=== PATIENT | female | born 1965 | race Caucasian/White ===

== ENCOUNTER → 2017-11-14 | Outpatient (CLI) | payer OTHER | LOC: FIMAGING 08:18 | PROVIDERS: ATTEND Family Medicine | DX: Z12.31 Encounter for screening mammogram for malignant neoplasm of breast (principal) ==

== ENCOUNTER 2018-03-26 12:07 | Observation (INO) | payer OTHER ==
[2018-03-26] MEDS ORDERED: LR 1,000 ML IV ONE (12:28)
[2018-03-26] MEDS ORDERED: ceFAZolin 2 GM/DEXTROSE 100 ML IV ONE (12:44)
[2018-03-26] MEDS ORDERED: VASOPRESSIN 20 UNIT/ML VIAL ONE (13:06)
[2018-03-26] MEDS ORDERED: MIDAZOLAM 2 MG/2 ML VIAL IVP ONE (13:50)
[2018-03-26] MEDS ORDERED: SCOPOLAMINE HYDROBROMIDE 1 MG/3 DAYS PATCH TD SCH (14:00)
--- NOTE | 2018-03-26 14:02 | PDANEPAE ---
ANE History of Present Illness Vaginal hysterectomy laparoscopic assisted. ANE Past Medical History - Cardiovascular History Hx Hypertension: No Hx Arrhythmias: No Hx Chest Pain: No Hx Coronary Artery / Peripheral Vascular Disease: No Hx CHF / Valvular Disease: No Hx Palpitations: No - Pulmonary History Hx COPD: No Hx Asthma/Reactive Airway Disease: Yes Hx Recent Upper Respiratory Infection: No Hx Oxygen in Use at Home: No Hx Sleep Apnea: No Sleep Apnea Screening Result - Last Documented: Negative Pulmonary History Comment: CHILDHOOD RESOLVED BY AGE 4. BRONCHITIS 02/10 THRU 02/23. WITH POST COUGH TIL 02/27/18 - Neurologic History Hx Cerebrovascular Accident: No Hx Seizures: No Hx Dementia: No - Endocrine History Hx Diabetes: No Hypothyroid: No Hyperthyroid: No Obesity: mild - Renal History Hx Renal Disorders: No Renal History Comment: SLIGHT STRESS INCONT - Liver History Hx Hepatic Disorders: No - Neurological & Psychiatric Hx Hx Neurological and Psychiatric Disorders: No - Congenital Disorder History Hx Congenital Disorders: No - GI History Hx Gastrointestinal Disorders: Yes Gastrointestinal History Comment: GASTRIC SLEEVE. HX OF DUDONEAL ULCER - Other Health History Other Health History: ANEMIA. DYSFUNCTIONAL UTERINE BLEEDING - Chronic Pain History Chronic Pain: No - Surgical History Prior Surgeries: LAP BAND 2007. LAP BAND REVISION HERNIATED 2008. LAP BAND REMVL 2013. GASTRIC SLEEVE 2014 ANE Review of Systems Review of systems is: negative Review of Systems: - Exercise capacity METS (RN): 4 METS ANE Patient History - Allergies Allergies/Adverse Reactions: mushroom Allergy (Verified 03/23/18 12:46) - Home Medications Home Medications: Ferrous Sulfate [Ferrous Sulf 325 MG (*)] 325 mg PO DAILY 03/17/18 [Last Taken Unknown] Herbals/Supplements -Info Only 1 ea PO DAILY 03/17/18 [Last Taken Unknown] Vitamin B Complex [Vitamin B Complex (OTC)] 1 each PO DAILY 03/17/18 [Last Taken Unknown] - NPO status NPO Since - Liquids (Date): 03/25/18 NPO Since - Liquids (Time): 18:00 NPO Since - Solids (Date): 03/25/18 NPO Since - Solids (Time): 18:00 - Anes Hx Anes Hx: no prior problems - Smoking Hx Smoking Status: Never smoked Marijuana use: No - Alcohol Use Alcohol Use: Occasionally - Family Anes Hx Family Anes Hx: none ANE Labs/Vital Signs - Vital Signs Blood Pressure: 127/89 Heart Rate: 66 Respiratory Rate: 16 O2 Sat (%): 99 Height: 162.56 cm Weight: 86.183 kg ANE Physical Exam - Airway Neck exam: decreased ROM Mallampati Score: Class 2 Mouth exam: normal dental/mouth exam, poor dentition - Pulmonary Pulmonary: no respiratory distress, no rales or rhonchi - Cardiovascular Cardiovascular: regular rate and rhythym, no murmur, rub, or gallop - ASA Status ASA Status: II ANE Anesthesia Plan Anesthesia Plan: general endotracheal anesthesia, spinal Specialized Airway: video laryngoscope
[2018-03-26] MEDS ORDERED: BUPIVACAINE/EPI 0.5% 30 ML SDV ONE (14:13)
[2018-03-26] MEDS ORDERED: BUPIVACAINE 0.5% 30 ML SDV ONE (14:15)
[2018-03-26] MEDS ORDERED: fentaNYL 250 MCG/5 ML INJ ONE (14:19)
[2018-03-26] MEDS ORDERED: PROPOFOL/EMULSION 500 MG/50 ML BOTTLE IV ONE ×2 (14:19)
[2018-03-26] MEDS ORDERED: DEXAMETHASONE 4 MG/ML VIAL ONE (14:21)
[2018-03-26] MEDS ORDERED: GLYCOPYRROLATE 0.2 MG/1 ML VIAL ONE (14:21)
[2018-03-26] MEDS ORDERED: ONDANSETRON 4 MG/2 ML VIAL ONE (14:21)
[2018-03-26] MEDS ORDERED: ROCURONIUM 100 MG/10 ML VIAL ONE (14:21)
[2018-03-26] MEDS ORDERED: LIDOCAINE 2% 5 ML SDV ONE (14:23)
[2018-03-26] MEDS ORDERED: morphINE PF 5 MG/10 ML INJ ONE (14:27)
--- NOTE | 2018-03-26 14:28 | PDHPUP ---
History & Physical Update H&P update statement: This history and physical update is based on an assessment of the patient which was completed after admission or registration (within 24 hours), but prior to the surgery/procedure. H&P update: H&P reviewed & patient examined, no change in patient's condition since H&P completed
--- NOTE | 2018-03-26 14:32 | PDHPUP ---
History & Physical Update H&P update statement: This history and physical update is based on an assessment of the patient which was completed after admission or registration (within 24 hours), but prior to the surgery/procedure. H&P update: H&P reviewed & patient examined H&P changes: 52yo F c longstanding R flank lipoma. Examined in pre-op. Lipoma is mobile, large. - plan for excision in OR concomitant hyst. - RBA discussed. - site marked
[2018-03-26] MEDS ORDERED: fentaNYL 100 MCG/2 ML INJ ONE (17:05)
[2018-03-26] MEDS ORDERED: PROPOFOL 200 MG/20 ML VIAL ONE ×2 (17:05→17:06)
[2018-03-26] MEDS ORDERED: NALOXONE HCL 0.4 MG/ML INJ IVP PRN ×2 (17:11→18:13)
[2018-03-26] MEDS ORDERED: METOCLOPRAMIDE 10 MG/2 ML VIAL IVP PRN (17:19)
[2018-03-26] MEDS ORDERED: ONDANSETRON 4 MG/2 ML VIAL IVP PRN ×2 (17:19→18:13)
--- NOTE | 2018-03-26 17:41 | POSTOPPROG ---
Post Op Note Date of Operation: 03/26/18 Surgeon: Alexus Baer Transcript Clerk: Hannah DICK Anesthesiologist: Siri Rosenbaum Anesthesia: GET(General Endotracheal), Spinal Pre-op Diagnosis: DUB , adenomyosis Post-op Diagnosis: same Indication: DUB , anemia Procedure: TVH Findings: enlarged uterus Inf/Abcess present in the surg proc area at time of surgery?: No EBL: 100-500
[2018-03-26] MEDS ORDERED: D5W LR 1,000 ML IV SCH (17:45)
[2018-03-26] MEDS ORDERED: HYDROCODONE/APAP 5/325 TAB PO PRN (17:47)
[2018-03-26] MEDS ORDERED: oxyCODONE IR 5 MG TAB PO PRN (18:13)
[2018-03-26] MEDS ORDERED: fentaNYL 100 MCG/2 ML INJ IVP PRN (18:13)
[2018-03-26] MEDS ORDERED: DIAZEPAM 5 MG/ML 1 ML SYR IVP PRN (18:13)
[2018-03-26] MEDS ORDERED: MEPERIDINE 25 MG/0.5 ML AMP IVP PRN (18:13)
[2018-03-26] MEDS ORDERED: PROMETHAZINE HCL 25 MG/ML INJ IVP PRN (18:13)
[2018-03-26] MEDS ORDERED: HYDROmorphONE/DILAUDID 2 MG/ML INJ IVP PRN (18:13)
[2018-03-27] MEDS: IBUPROFEN 600 MG TAB PO SCH ×2 (05:46→07:39)
--- NOTE | 2018-03-27 06:45 | POSTOPPROG ---
Post Op Note Date of Operation: 03/27/18 Surgeon: Delfino Cortez Anesthesiologist: Robi Anesthesia: GET(General Endotracheal) Pre-op Diagnosis: R flank lipoma Post-op Diagnosis: same Procedure: Excision R flank lipoma Findings: [id number] lipoma, removed intact Inf/Abcess present in the surg proc area at time of surgery?: No EBL: Minimal Specimen(s): lipoma
[2018-03-27 07:35] VITALS: BP 93/62
--- NOTE | 2018-03-27 10:11 | GOP ---
[f rep st] OPERATIVE REPORT DATE OF OPERATION: 03/26/2018 SURGEON: Delfino Cortez MD CERTIFIED HEALTH EDUCATION SPECIALIST: None. ANESTHESIA: General endotracheal. ANESTHESIOLOGIST: Dr. Siri Rosenbaum. PREOPERATIVE DIAGNOSIS: Symptomatic right flank lipoma. POSTOPERATIVE DIAGNOSIS: Symptomatic right flank lipoma. PROCEDURE PERFORMED: Excision of right flank lipoma measuring 5 x 4 x 3 cm. FINDINGS: Large lipoma successfully removed down to the level of the muscle. No other significant f indings appreciated. SPECIMENS: Right flank lipoma. ESTIMATED BLOOD LOSS: 5 cc. DESCRIPTION OF PROCEDURE: The patient was greeted in the preoperative suite. Once again, risks, meek efits, and alternatives were discussed. Consent was signed. She was then brought back to the operat alexander suite, placed on the OR table in supine position. After all anesthesia machines were on and func tioning, [employer] time-out was performed. This was a joint procedure. The initial procedure was performed by Dr. Alexus Baer. The patient underwent uneventful transvaginal hyste rectomy. Please see dictation by Dr. Baer for this portion of the procedure. At the conclusion of her procedure, the patient was then placed in the left lateral decubitus position with the right venice e successfully bumped. Her right flank was prepped and draped in the typical sterile fashion. A kendra e-out was then re-performed. I commenced the procedure by creating a field block using 0.5% Marcaine . I then made a 3 cm incision through the skin. I carried this down through the subcutaneous tissue and encountered the large lipoma. I successfully skeletonized the lipoma from all the surrounding s tructures down to the level of what appeared to be latissimus muscle. The specimen was then removed and passed off. Hemostasis was achieved in the wound bed with electrocautery and gentle pressure. I then infiltrated a total of 30 cc into the wound cavity. After hemostasis was noted to be good, I c losed the wound in layers, first with interrupted 3-0 Vicryl followed by a running 4-0 Monocryl over which Dermabond was placed. The patient was then subsequently extubated in the operative suite and t aken to the PACU in satisfactory condition. DRAINS: None. COUNTS: All counts were reported as correct x2. /[id number]/MODL
--- NOTE | 2018-03-27 10:43 | SOAPPROG ---
SOAP Progress Note Assessment/Plan: Assessment:POD # 1 doing well , ready to go home , hasn't voided yet, bowel function returning , no pain and little bleeding Plan: d/c , f/u in 1-2 weeks , tramadol given for pain rx , needs to void before going home 03/27/18 10:40 Subjective: no pain, no bleeding , ambulating, tolerating regular diet Objective: lungs cta , abd soft pos BS Vital Signs Temp Pulse Resp BP Pulse Ox 36.6 C 60 16 93/62 L 100 03/27/18 07:33 03/27/18 07:33 03/27/18 07:33 03/27/18 07:33 03/27/18 07:33 Laboratory Results 03/27/18 03:39 03/26/18 03/27/18 03/28/18 05:59 05:59 05:59 Intake Total 2560 Output Total 1300 Balance 1260
--- NOTE | 2018-03-27 16:25 | GOP ---
[f rep st] OPERATIVE REPORT DATE OF OPERATION: 03/26/2018 SURGEON: Alexus Baer MD CORPORATE MANAGER: Hannah Claros [facility]. ANESTHESIA: Spinal for postop pain control and general endotracheal anesthesia. ANESTHESIOLOGIST: Siri Rosenbaum MD. PREOPERATIVE DIAGNOSIS: 1. Dysfunctional uterine bleeding. 2. Adenomyosis. 3. Anemia. POSTOPERATIVE DIAGNOSIS: 1. Dysfunctional uterine bleeding. 2. Adenomyosis. 3. Anemia. PROCEDURE PERFORMED: Total vaginal hysterectomy. FINDINGS: Large prominent uterus with very large cervix. Normal bilateral ovaries. ESTIMATED BLOOD LOSS: 300 cc. INDICATIONS: Patient is a 52-year-old who has had problematic heavy menstrual bleeding for several y ears. She is on iron therapy and last 2 hematocrits done were at 30. She has had an ultrasound sono hysterogram, and this showed no filling defect and several cystic areas in her myometrium suggestive of adenomyosis. Patient has been offered treatment options including NovaSure endometrial ablation w ith an IUD, and she desires definitive therapy and will proceed with vaginal hysterectomy. I did sug gest that, if possible, we would try to get her bilateral fallopian tubes if possible. DESCRIPTION OF PROCEDURE: With informed consent signed, patient was taken to the operating room and placed under spinal then general anesthesia, placed in the high dorsal lithotomy position, prepped an d draped in the usual sterile fashion. Johnson catheter placed. Two tenacula were placed on the cervi x for traction, and a weighted speculum was placed in the posterior fornix. A posterior colpotomy wa s performed using the Guajardo scissors. The posterior vaginal tissue was sewn together with the underly ing peritoneum in a running baseball stitch for hemostatic purposes. Next, the weighted speculum was placed into the posterior cul-de-sac. The left uterosacral ligament was clamped, cut, and suture li gated. The tissue was very dense and the cervix was quite wide, so it took several bites just to get the uterosacral ligament on both sides. Next, the cardinal ligament on each side was clamped, cut, and suture ligated. Part of the broad ligament was clamped, cut, and suture ligated. Because there was moderate bleeding at this point, 10 cc of dilute Pitressin were injected into the uterine beltran. Extensive time was used to clamp, cut, and suture ligate the sidewalls up to the uterus. The uterus had to be inverted to get the cornua of the uterus and then inverted back to get the utero-ovarian l igament. Also it took some time to get into the anterior cul-de-sac as there were adhesions from her , but this was done without complication. After about an hour and 20 minutes of resection, the cervix and uterus were removed. The adnexa were noted to way up inside the pelvis, and there wa s some difficulty trying to resect the fallopian tubes, so that was not attempted. Next, all the ped icles were inspected and noted to be hemostatic. Cautery used for oozing blood vessels. The Clark culdoplasty was used to obliterate the posterior cul-de-sac using a 2-0 Vicryl placed into the 6 o'cl ock position of the vagina, passed in the left uterosacral ligament and then several bites of the pos terior peritoneum and the right uterosacral ligament and then out the vaginal cuff opening. This was tied down and then the vaginal cuff was closed with [id number] sutures. Hemostasis again was n oted. Patient was placed in the supine position, awakened in the operating room, and taken recovery room in stable condition, having tolerated the procedure well. COMPLICATIONS: None. /[id number]/MODL
[2018-03-29] MEDS ORDERED: PATCH REMOVAL 1 EA PATCH TD SCH (13:51)
== END 2018-03-27 11:09 | disposition home or self-care (01) ==
LOC: F3N 12:07 → FOB 19:30
PROVIDERS: ADMIT Obstetrics & Gynecology Gynecology; ATTEND Obstetrics & Gynecology Gynecology
PROC: 0UT97ZZ Resection of Uterus, Via Natural or Artificial Opening (ICD-10-PCS; principal; 2018-03-26 14:30)
PROC: 0JB70ZZ Excision of Back Subcutaneous Tissue and Fascia, Open Approach (ICD-10-PCS; principal; 2018-03-26 14:30)
DX: N93.8 Other specified abnormal uterine and vaginal bleeding (principal); N80.0 Endometriosis of uterus; D17.1 Benign lipomatous neoplasm of skin and subcutaneous tissue of trunk; D64.9 Anemia, unspecified
CPT/HCPCS: 21933; 58260; G0378; J0690; J1100; J2250; J2274; J2405; J2704; J3010